=== PATIENT | male | born 1955 | race Caucasian/White ===

== ENCOUNTER 2017-02-07 12:40 | Day surgery (SDC) | payer BC ==
[2017-02-05 11:14] LABS: BASOPHILS 0.4 %; BASOPHILS ABSOLUTE 0.03 10/3/uL (0.0-0.16); EOSINOPHILS 1.8 %; EOSINOPHILS ABSOLUTE 0.14 10/3/uL (0.0-0.53); HEMATOCRIT 43.6 % (40.0-51.0); HEMOGLOBIN 15.4 g/dL (13.6-17.8); IMMATURE GRANULOCYTES 0.4 %; IMMATURE GRANULOCYTES ABSOLUTE 0.03 10/3/uL (0.0-0.11); LYMPHOCYTES 19.2 %; LYMPHOCYTES ABSOLUTE 1.49 10/3/uL (0.67-4.30); MANUAL DIFF NO %; MEAN CORPUS HGB CONC 35.3 g/dL (32.0-36.0); MEAN CORPUSCULAR HEMOGLOB 32.3 pg (26.0-34.0); MEAN CORPUSCULAR VOLUME 91.4 fL (80-100); MEAN PLATELET VOLUME 9.7 fL (9.2-13.0); MONOCYTES 8.1 %; MONOCYTES ABSOLUTE 0.63 10/3/uL (0.21-1.20); NEUTROPHILS 70.1 %; NEUTROPHILS ABSOLUTE 5.46 10/3/uL (2.02-8.40); PLATELET COUNT 295 10/3/uL (150-400); RBC DISTRIBUTION WIDTH 14.2 % (12.0-16.0); RED CELL COUNT 4.77 10/6/uL (4.7-6.1); WHITE BLOOD CELLS 7.8 10/3/uL (4.5-10.5)
[2017-02-05 11:37] LABS: BUN (BLOOD UREA NITROGEN) 14 MG/DL (6-23); CALCIUM, SERUM 9.6 MG/DL (8.5-10.4); CHLORIDE, SERUM 105 MMOL/L (96-112); CO2 (CARBON DIOXIDE) 27 MMOL/L (24-34); CREATININE 1.12 MG/DL (0.70-1.30); GFR AFRICAN AMERICAN 83 ML/MIN (>=60); GFR NON AFRICAN AMERICAN 72 ML/MIN (>=60); GLUCOSE, SERUM 160 MG/DL (60-99); SODIUM, SERUM 140 MMOL/L (135-148)
[2017-02-05 11:38] LABS: POTASSIUM, SERUM 4.5 MMOL/L (3.5-5.3)
--- NOTE | ~2017-02-07 | OP ---
Record Of Operation [facility] [address] [place] [address] NAME: AMAN BAEZ : 59 STATUS : [facility]#: [id number] AGE: 61 ADM/REG DATE : 02/07/17 MR#: [id number] REPORT SERV DATE: 02/07/17 DICTATED BY: ROLANDO JASSO III DATE: 02/07/17 REPORT STATUS : Draft TRANSCRIBED BY: MODL DATE: 02/07/17 DATE OF PROCEDURE: 02/07/2017 PROCEDURE: Cystoscopy, urethral dilatation, bilateral retrogrades. PREOPERATIVE DIAGNOSIS: Gross hematuria and urethral stricture. POSTOPERATIVE DIAGNOSIS: Gross hematuria and urethral stricture. ANESTHESIA: General. DESCRIPTION OF PROCEDURE: Following induction of after general anesthesia, the patient was placed in dorsal lithotomy position, prepped and draped in a sterile fashion. Attempts to place a wire into the meatus, it would not pass. A short ureteroscope was used to pass a sensor wire and a ureteral dilatation set was used to dilate the ureter. This went nicely. We then used Dao sounds to dilate up to 26-Iranian. A 22-Iranian sheath was then passed. The patient remainder of the urethra was normal. The prostate was mildly obstructed. Bladder was entered. It was moderately trabeculated. There were no tumors or stones. The bladder was inspected at both 70-degree and 30-degree lenses. The bilateral retrogrades were done showing normal ureters, renal pelves, and calyces. He tolerated the procedure well. An 18-Iranian Constantino was placed. He will be instructed how to remove the catheter with a syringe in 72 hours and see me in four to six weeks. OB/MODL Rolando Jasso III, M.D. / [id number] CC: Dada Baca III, NABIL N.
[~2017-02-07 12:40] MED LIST: GLUCOPHAGE1000 MG PO; GLUCOTRO10 PO; LISINOPRIL
== END 2017-02-07 18:14 | disposition home or self-care (01) ==
LOC: SDC 12:40
PROVIDERS: Urology
PROC: BT14ZZZ Fluoroscopy of Kidneys, Ureters and Bladder (ICD-10-PCS; 2017-02-07)
PROC: 0T7D8ZZ Dilation of Urethra, Via Natural or Artificial Opening Endoscopic (ICD-10-PCS; principal; 2017-02-07 14:30)
DX: N35.9 Urethral stricture, unspecified (principal); R31.0 Gross hematuria; I12.9 Hypertensive chronic kidney disease with stage 1 through stage 4 chronic kidney disease, or unspecified chronic kidney disease; N18.9 Chronic kidney disease, unspecified; E11.22 Type 2 diabetes mellitus with diabetic chronic kidney disease; E78.5 Hyperlipidemia, unspecified; G89.29 Other chronic pain; K21.9 Gastro-esophageal reflux disease without esophagitis; F17.200 Nicotine dependence, unspecified, uncomplicated; Z98.890 Other specified postprocedural states; Z79.84 Long term (current) use of oral hypoglycemic drugs; Z79.899 Other long term (current) drug therapy
CPT/HCPCS: 71020; 74420; 80048; 82962; 85025; 93005; A9270-GY; C1758; J2250; J2405; J3010; Q9967